=== PATIENT | male | born 2000 | race Caucasian/White ===

== ENCOUNTER 2020-08-03 06:21 | Day surgery (SDC) | payer MEDICARE, OTHER ==
[~2020-08-03 06:21] MED LIST: BACLOFEN20 MG PT; GLYCOPYRROLATE1 MG PT
--- NOTE | 2020-08-03 08:48 | NUR ---
08/03/20 0848 An Mccarty [id number] PATIENT ARRIVES TO PACU UNRESPONSIVE TO PAIN. RESP EVEN AND UNLABORED, ORAL AIRWAY IN PLACE. MASK ON AT 6 LITERS.
--- NOTE | 2020-08-03 09:28 | NUR ---
CHARLIE AT BEDSIDE ATTENTIVE. PT USED URINAL AND WANTED SUCTIONED AND RED PHELM.
--- NOTE | 2020-08-03 10:27 | NUR ---
PT HAS BEEN DISCHARGED. NEEDING TO WAIT FOR [facility] TO GO HOME.
--- NOTE | 2020-08-03 10:30 | NUR ---
ON ARRIVAL PT CAME IN PERSONAL WC WITH CHARLIE CAREGIVER. SHE ANSWERED QUESTIONS. PT COOPERATIVE HAS A FEW WORDS BUT MOSTLY NON VERBAL.
== END 2020-08-03 10:50 | disposition home or self-care (01) ==
LOC: DS 06:21 → OPS 06:21 → DS 06:45 → OPS 10:50
PROVIDERS: ATTEND Dentist
PROC: 0CCWXZ1 Extirpation of Matter from Upper Tooth, Multiple, External Approach (ICD-10-PCS; principal; 2020-08-03 06:45)
PROC: 0CCXXZ1 Extirpation of Matter from Lower Tooth, Multiple, External Approach (ICD-10-PCS; principal; 2020-08-03 06:45)
DX: K02.9 Dental caries, unspecified (principal); K03.6 Deposits [accretions] on teeth; G47.33 Obstructive sleep apnea (adult) (pediatric); K21.9 Gastro-esophageal reflux disease without esophagitis; G80.8 Other cerebral palsy; Z88.5 Allergy status to narcotic agent; Z88.2 Allergy status to sulfonamides; Z88.1 Allergy status to other antibiotic agents
CPT/HCPCS: 00170; 80048; 85025; J1100; J1885; J2001; J2250; J2405; J2704; J3010; J7121